=== PATIENT | male | born 1960 | race Hispanic/Latino ===

== ENCOUNTER 2018-04-01 18:27 | Observation (INO) | payer OTHER, SELFPAY ==
[2018-04-01 19:40] LABS: #Lymphocytes 1.2 thou/uL (1.20-3.40); #Monocytes 0.3 thou/uL (0.11-0.59); #Neutrophils 3.7 thou/uL (1.40-6.50); %Basophils 0.4 % (0.0-1.0); %Eosinophils 0.7 % (0.0-10.0); %Lymphocytes 22.5 % (21.0-51.0); %Monocytes 6.1 % (0.0-10.0); %Neutrophils 70.3 % (42.0-75.0); Hemoglobin 14.2 g/dL (14.0-18.0); Mean Corpuscular HGB CONC 33.7 g/dL (32.0-36.0); Mean Corpuscular Hemoglobin 31.4 pg (27.0-31.0); Mean Corpuscular Volume 93.1 fL (78.0-98.0); Mean Platelet Volume 7.3 fL (7.4-10.4); Platelet Count 207 thou/uL (130-400); RBC Distribution Width 11.5 % (11.5-14.5); Red Blood Cell (RBC) Count 4.51 mill/uL (4.70-6.10); White Blood Cell (WBC) Count 5.2 thou/uL (4.8-10.8)
[2018-04-01 20:03] LABS: ALT (SGPT) 20 U/L (8-55); AST (SGOT) 36 U/L (5-34); Albumin 4.5 g/dL (3.5-5.0); Alkaline Phosphatase 100 U/L (40-150); Anion Gap 14 mmol/L (10-20); BUN (Urea Nitrogen) 6 mg/dL (8.4-25.7); Bilirubin, Total 0.5 mg/dL (0.2-1.2); CK (CPK) 242 U/L (30-200); Calc. Creatinine Clearance 0 mL/min (70-130); Calcium 9.6 mg/dL (7.8-10.44); Carbon Dioxide 25 mmol/L (22-29); Chloride 104 mmol/L (98-107); Estimated GFR-MDRD Greater than 90; Glucose 91 mg/dL (70-105); Lipase 21 U/L (8-78); Protein, Total 8.5 g/dL (6.0-8.3); Sodium 139 mmol/L (136-145)
[2018-04-01] MEDS ORDERED: Nitroglycerin 0.4 MG TAB 1 EACH ONE ×2 (20:03→20:04)
--- NOTE | 2018-04-01 20:05 | RAD ---
RADIOGRAPH CHEST 1 VIEW: HISTORY: A 57-year-old male with chest pain. FINDINGS: There are no air space densities, pulmonary edema, pneumothorax, or cardiomegaly. The lateral costop hrenic angles are sharp. IMPRESSION: No acute cardiopulmonary findings. jn [] POS: ENEIDA
[2018-04-01] MEDS ORDERED: Acetaminophen 500 MG TAB ONE (21:20)
[2018-04-02 00:12] VITALS: BMI 19.8
[2018-04-02] MEDS ORDERED: Acetaminophen 325 MG TAB PO PRN ×2 (01:47→02:04)
[2018-04-02] MEDS ORDERED: Labetalol HCl 100 MG/20 ML VIAL SLOW IVP PRN (01:48)
[2018-04-02] MEDS: Nitroglycerin 2% Ointment 1 INCH/1 GM Packet TOP SCH ×4 (02:22→21:12)
[2018-04-02] MEDS ORDERED: Ondansetron ODT 4 MG TAB PO PRN (07:55)
[2018-04-02] MEDS ORDERED: Ondansetron PF 4 MG/2 ML Vial IVP PRN (07:55)
[2018-04-02] MEDS ORDERED: Lorazepam 2 MG/ML VIAL SLOW IVP PRN (08:00)
--- NOTE | 2018-04-02 08:58 | HP ---
HISTORY OF PRESENT ILLNESS: This is a 57-year-old man, who presents with complaints of feeling generally unwell yesterday morning. The patient states he began to feel lightheaded and started to panic after feeling his heart racing in his chest. Denies having any pain in his chest and began feeling nauseated. He attempted to vomit and began dry heaving only. At that point, he experienced pressure in his chest associated with dry heaving. He denies having any shortness of breath. He states he often feels unwell the day after drinking alcohol. The patient denies any heavy alcohol use and states he only drinks 2-3 beers every couple of days. Upon further questioning, the patient admitted to drinking at minimum, two 40-ounce bottles of beer, every other day. The last time he had any alcohol was on Friday, 2 days ago. He states whenever he drinks, he tends to not eat at all and feels he may have felt nauseous for that reason. The patient denies having any history of cardiac problems in the past, but is known to have history of hypertension. This is uncontrolled and he does not follow up with any physician. He ran out of his hypertensive medications after moving from [place] several months ago. He has not sought any medical attention since. The patient has felt well since being admitted to the hospital. He denies having any further episodes of palpitations or any pain. He denies having any history of alcohol withdrawal seizures. On occasion, he does experience tremors with alcohol withdrawal, but at the moment, he feels well and himself. In the ED, he was noted to be hypertensive with a blood pressure of 199/103. He has been started on lisinopril, and his blood pressure has normalized. He had an ECG done that showed sinus tachycardia with a complete right bundle-branch block. He had laboratory studies including a CK which was 242 and serial troponins which were all negative. He has had a chest x-ray done which shows no acute findings. The patient has been admitted for further workup and investigations. PAST MEDICAL HISTORY: 1. Hypertension. 2. Previous right knee surgery. 3. Right drop foot due to previous injury. 4. Alcohol abuse. FAMILY HISTORY: Noncontributory. SOCIAL HISTORY: The patient is fully independent and lives with his family. His primary language is Vietnamese. PHYSICAL EXAMINATION: GENERAL: The patient appears well-developed, but thin. He is in no acute distress. VITAL SIGNS: Temperature 97.8, pulse 73, respirations 16, O2 saturation 98% on room air, blood pressure 146/82. HEENT: Normocephalic and atraumatic. Eyes notable for bilateral cataracts. Extraocular movements normal. Oropharynx is clear. NECK: Supple without lymphadenopathy. CARDIAC: Regular rate and rhythm without audible murmurs, rubs, or gallops. LUNGS: Clear to auscultation bilaterally without any wheezes, rales, or rhonchi. No reproducible chest pain on exam. ABDOMEN: Soft, nontender, nondistended. Normoactive bowel sounds present. EXTREMITIES: The girth of the right foot is lower than the left, however, no swelling or edema in his left leg. The patient does have what appears to be muscle atrophy in the right calf with notable right drop foot. Sensation intact. The pulses are strong and equal bilaterally. LABORATORY DATA AND IMAGING: As mentioned above in the HPI. IMPRESSION AND PLAN: Mr. Peralta will be admitted to the observation unit for further investigation and workup of the following conditions. 1. Hypertension. Blood pressure has normalized since he has been started back on lisinopril. 2. Palpitations. ECG demonstrated sinus tachy with right bundle-branch block. His heart rate has normalized. Serial troponins are negative possibly associated with alcohol withdrawal. Lorazepam p.r.n. prescribed. We will discuss with Dr. Arellano indication for further cardiac investigations including stress test. I have added an additional troponin as well as BNP and D-dimer. 3. Alcohol withdrawal. The patient has been given fluids. Also, lorazepam p.r.n. prescribed to help with any tremors or should he develop any during his stay. 4. Venous thromboembolism prophylaxis. 5. Gastrointestinal prophylaxis. Job ID: [id number]
[2018-04-02] MEDS: Lisinopril 20 MG TAB PO SCH (09:09)
[2018-04-02] MEDS: Famotidine 20 MG TAB PO SCH ×2 (09:09→21:11)
[2018-04-02 09:39] LABS: #Eosinphils 0.1 thou/uL (0.0-0.7); #Lymphocytes 0.8 thou/uL (1.20-3.40); #Monocytes 0.3 thou/uL (0.11-0.59); #Neutrophils 2.5 thou/uL (1.40-6.50); %Basophils 0.5 % (0.0-1.0); %Eosinophils 3.6 % (0.0-10.0); %Lymphocytes 21.5 % (21.0-51.0); %Monocytes 8.2 % (0.0-10.0); %Neutrophils 66.2 % (42.0-75.0); Mean Corpuscular HGB CONC 33.5 g/dL (32.0-36.0); Mean Corpuscular Hemoglobin 31.4 pg (27.0-31.0); Mean Corpuscular Volume 93.7 fL (78.0-98.0); Mean Platelet Volume 7.6 fL (7.4-10.4); Platelet Count 195 thou/uL (130-400); RBC Distribution Width 11.5 % (11.5-14.5); Red Blood Cell (RBC) Count 4.13 mill/uL (4.70-6.10); White Blood Cell (WBC) Count 3.8 thou/uL (4.8-10.8)
[2018-04-02 09:58] LABS: Troponin I Less than 0.010 ng/mL (< 0.028)
[2018-04-02 09:59] LABS: ALT (SGPT) 16 U/L (8-55); AST (SGOT) 28 U/L (5-34); Albumin 3.7 g/dL (3.5-5.0); Alkaline Phosphatase 75 U/L (40-150); Anion Gap 11 mmol/L (10-20); BUN (Urea Nitrogen) 7 mg/dL (8.4-25.7); Calc. Creatinine Clearance 80 mL/min (70-130); Calcium 9.3 mg/dL (7.8-10.44); Carbon Dioxide 27 mmol/L (22-29); Chloride 107 mmol/L (98-107); Estimated GFR-MDRD Greater than 90; Globulin 3.5 g/dL (2.4-3.5); Glucose 96 mg/dL (70-105); Magnesium 1.9 mg/dL (1.6-2.6); Potassium 3.7 mmol/L (3.5-5.1); Protein, Total 7.2 g/dL (6.0-8.3); Sodium 141 mmol/L (136-145)
[2018-04-02] MEDS: Sodium Chloride 0.9% 1,000 ML IV SCH (15:52)
--- NOTE | 2018-04-02 17:59 | PDOC.EVN ---
Event Note - Event Note Event Note: Chart reviewed. Pt seen with Beverly Bar. Pt denies current chest pain. VSS S1, S2 Lungs CTA A/P: 1. chest pain: w/u in progress 2. Hypertensive urgency: Improved.
[2018-04-03] MEDS: Nitroglycerin 2% Ointment 1 INCH/1 GM Packet TOP SCH ×3 (03:14→13:59)
[2018-04-03] MEDS: Sodium Chloride 0.9% 1,000 ML IV SCH (06:28)
[2018-04-03 06:42] LABS: #Eosinphils 0.2 thou/uL (0.0-0.7); #Lymphocytes 1.2 thou/uL (1.20-3.40); #Monocytes 0.4 thou/uL (0.11-0.59); #Neutrophils 2.3 thou/uL (1.40-6.50); %Basophils 1.2 % (0.0-1.0); %Eosinophils 4.8 % (0.0-10.0); %Lymphocytes 29.4 % (21.0-51.0); %Monocytes 8.6 % (0.0-10.0); %Neutrophils 56.1 % (42.0-75.0); Hemoglobin 12.5 g/dL (14.0-18.0); Mean Corpuscular HGB CONC 32.1 g/dL (32.0-36.0); Mean Corpuscular Hemoglobin 30.8 pg (27.0-31.0); Mean Corpuscular Volume 95.9 fL (78.0-98.0); Mean Platelet Volume 8.1 fL (7.4-10.4); Platelet Count 187 thou/uL (130-400); RBC Distribution Width 11.7 % (11.5-14.5); Red Blood Cell (RBC) Count 4.07 mill/uL (4.70-6.10); White Blood Cell (WBC) Count 4.1 thou/uL (4.8-10.8)
[2018-04-03 06:59] LABS: ALT (SGPT) 17 U/L (8-55); AST (SGOT) 24 U/L (5-34); Albumin 3.7 g/dL (3.5-5.0); Alkaline Phosphatase 67 U/L (40-150); Anion Gap 10 mmol/L (10-20); BUN (Urea Nitrogen) 8 mg/dL (8.4-25.7); Calc. Creatinine Clearance 79 mL/min (70-130); Calcium 9.4 mg/dL (7.8-10.44); Carbon Dioxide 31 mmol/L (22-29); Chloride 104 mmol/L (98-107); Estimated GFR-MDRD Greater than 90; Globulin 3.3 g/dL (2.4-3.5); Glucose 83 mg/dL (70-105); Potassium 3.6 mmol/L (3.5-5.1); Sodium 141 mmol/L (136-145)
--- NOTE | 2018-04-03 08:13 | PDOC.PN ---
- Subjective Encounter Start Date: 04/03/18 Encounter Start Time: 08:11 Subjective: Patient resting comfortably. Feels well and without complaints. -: No further HAQUE. Denies any CP, palpitations or SOB since admission. -: No leg swelling/pain. Mobilising without difficulty. No SHAW. No n/v. No tremors/sweats or other symptoms of alcohol withdrawal. - Objective Resuscitation Status - Order Detail: 04/02/18 07:55 Resuscitation Status Routine Co-Sign Provider: Resuscitation Status: FULL: Full Resuscitation Vital Signs & Weight: Vital Signs (12 hours) Temp Pulse Resp BP BP Pulse Ox 04/03/18 07:24 98 F 67 15 119/67 98 04/03/18 04:19 98 F 70 14 121/67 98 04/02/18 21:10 98.1 F 72 16 129/71 98 Weight Weight 123 lb 4 oz I&O: 04/02/18 04/03/18 04/04/18 06:59 06:59 06:59 Intake Total 240 1697 Balance 240 1697 Result Diagrams: 04/03/18 04:37 04/03/18 04:37 Phys Exam - Physical Examination Constitutional: NAD HEENT: PERRLA, moist MMs, oral pharynx no lesions Neck: no nodes, supple, full ROM Respiratory: clear to auscultation bilateral Cardiovascular: RRR Gastrointestinal: soft, non-tender, no distention, positive bowel sounds Musculoskeletal: no edema, pulses present Neurological: normal sensation, moves all 4 limbs Psychiatric: normal affect, A&O x 3 Skin: no rash Dx/Plan (1) Chest pain Code(s): R07.9 - CHEST PAIN, UNSPECIFIED Status: Acute (2) Alcohol abuse Code(s): F10.10 - ALCOHOL ABUSE, UNCOMPLICATED Status: Acute (3) Hypertension Code(s): I10 - ESSENTIAL (PRIMARY) HYPERTENSION Status: Acute - Plan cont current plan of care, out of bed/ambulate, DVT proph w/lovenox, DVT proph w /SCDs D-Dimer negative. -: Awaiting stress test and Echo. -: For potential discharge if above investigations normal. -: Continue Lisinopril and monitor BP. Will need Rx at discharge. * . Review of Systems - Review of Systems Constitutional: negative: fever, chills, sweats, weakness, malaise Eyes: Other (Bilateral cataracts). negative: Pain, Vision Change ENT: negative: Ear Pain, Mouth Pain, Throat Pain, Throat Swelling Respiratory: negative: Cough, Dry, Shortness of Breath, Hemoptysis, SOB with Excertion Gastrointestinal: negative: Abdominal Pain, Diarrhea, Constipation, Melena, Hematochezia Genitourinary: negative: Dysuria, Frequency, Incontinence, Hematuria Musculoskeletal: negative: Neck Pain, Shoulder Pain, Arm Pain, Back Pain, Leg Pain Skin: negative: Rash, Lesions Neurological: negative: Weakness, Numbness, Change in Speech, Confusion - Medications/Allergies Allergies/Adverse Reactions: Allergies Allergy/AdvReac Type Severity Reaction Status Date / Time No Known Allergies Allergy Verified 04/02/18 01:31 Medications: Current Medications Acetaminophen (Tylenol) 650 mg PO Q4H PRN PRN Reason: Headache/Fever or Pain Last Admin: 04/02/18 15:53 Dose: 650 mg Famotidine (Pepcid) 20 mg PO BID [facility] Last Admin: 04/02/18 21:11 Dose: 20 mg Sodium Chloride (Normal Saline 0.9%) 1,000 mls @ 65 mls/hr IV .[id number] [facility] Last Admin: 04/03/18 06:28 Dose: 1,000 mls Labetalol HCl (Normodyne) 10 mg SLOW IVP Q4H PRN PRN Reason: SBP > 160 OR DBP > 100 Lisinopril (Zestril) 20 mg PO DAILY [facility] Last Admin: 04/02/18 09:09 Dose: 20 mg Lorazepam (Ativan) 2 mg SLOW IVP Q6H PRN PRN Reason: Anxiety/Agitation Nitroglycerin (Nitro-Bid 2% Ointment) 1 inch TOP 0200,0800,1400,2000 [facility] Last Admin: 04/03/18 07:27 Dose: Not Given Ondansetron HCl (Zofran Odt) 4 mg PO Q6H PRN PRN Reason: Nausea/Vomiting Ondansetron HCl (Zofran) 4 mg IVP Q6H PRN PRN Reason: Nausea/Vomiting Sodium Chloride (Flush - Normal Saline) 10 ml IVF Q12HR PRN PRN Reason: Saline Flush Sodium Chloride (Flush - Normal Saline) 10 ml IVF PRN PRN PRN Reason: Saline Flush
[2018-04-03] MEDS ORDERED: ADENOSINE 60 MG/20 ML VIAL ONE (09:23)
[2018-04-03] MEDS: Lisinopril 20 MG TAB PO SCH (10:36)
[2018-04-03] MEDS: Famotidine 20 MG TAB PO SCH (10:36)
--- NOTE | 2018-04-03 13:04 | NM ---
NUCLEAR MEDICINE CARDIAC MYOCARDIAL PERFUSION SPECT EJECTION FRACTION STUDY WALL MOTION CINE: 04/03/2018 HISTORY: A 57-year-old hypertensive male who presents with acute chest pain. TECHNIQUE: Number of days: 1. Rest study: Tc99m sestamibi (Cardiolite) dose: 10.0 mCi Pharmacologic stress: adenosine dose: 31.3 mg Stress study: Tc99m sestamibi (Cardiolite) dose: 30.0 mCi FINDINGS: CARDIAC (MYOCARDIAL PERFUSION) SPECT Distribution of sestamibi is homogeneous throughout the left ventricle, with no fixed or reversible m yocardial perfusion defects. EJECTION FRACTION STUDY EF = 54% WALL MOTION CINE The left ventricular wall motion is normal. There is normal systolic wall thickening. IMPRESSION: Normal. cassandra[] POS: ENEIDA
[2018-04-03 16:10] VITALS: BP 122/65; TEMP 98.7
--- NOTE | 2018-04-03 18:19 | DIS ---
DATE OF ADMISSION: 04/01/2018 DATE OF DISCHARGE: 04/03/2018 CONSULTING PHYSICIAN: None. DISCHARGE DIAGNOSES: 1. Hypertension, poorly controlled due to noncompliance. 2. Alcohol abuse. HOSPITAL COURSE: Mr. Peralta is a 57-year-old man with background history of hypertension who presented to the ED due to complaints of general malaise and palpitations. He began hyperventilating at home followed by chest discomfort, but denies having any pain per se. He had an episode of vomiting. The patient states he tends to feel unwell on days. He is not drinking alcohol. He drinks heavily 2 to 3 40-ounce bottles of beer at least 3 times a week. The patient states he ran out of his lisinopril after moving to [place] from [place] and has not followed up with any primary care physician since. He had a mild headache on admission and this improved once his blood pressure was controlled during his stay. He did undergo multiple investigations to rule out underlying cardiac cause including an echo which showed normal EF. Stress test, which was unremarkable. Also had a D-dimer done, which was negative. His blood pressure as mentioned above has been very well controlled, and on day of discharge, he is at baseline and medically cleared to go home. REVIEW OF SYSTEMS: He has had absolutely no complaints. Eating and drinking fine without any nausea or vomiting. Denies any abdominal pain. Has been moving his bowels normal. No urinary symptoms without any fevers, chills, or sweats. No chest pain, palpitations, or shortness of breath. No cough or hemoptysis. All other review of systems are negative. PHYSICAL EXAMINATION: GENERAL: The patient appears thin, well-built, in no acute distress. VITAL SIGNS: Temperature 98.7, pulse 70, respirations 16, O2 saturation 98% on room air, blood pressure 122/65. HEENT: Normocephalic and atraumatic. Pupils are equal, round, reactive to light. Sclerae are anicteric. Bilateral cataracts present. NECK: Supple without lymphadenopathy. Full range of motion. CARDIAC: Regular rate and rhythm. LUNGS: Clear to auscultation bilaterally. ABDOMEN: Soft, nontender, nondistended with bowel sounds present. EXTREMITIES: No clubbing, cyanosis, or edema. NEUROLOGIC: Alert and oriented x3. No focal deficits. LABORATORY DATA: Full blood count: White blood count 4.1, hemoglobin 12.5, and hematocrit 39, platelets 187. D-dimer less than 0.27. Electrolytes unremarkable. Renal function normal. GFR greater than 90. Serial troponins negative. BNP 43.8. Lipase 21. TSH 1.29. IMAGING DATA: 1. Chest x-ray on 04/01/2018, no acute cardiopulmonary findings. 2. On 04/02/2018, stress test nuclear medicine, EF 54%, normal examination. No myocardial perfusion defects present. 3. Echocardiogram on 04/01/2018, ejection fraction estimated at 55% to 60%, normal size left atrium. Left ventricular size normal. Mild mitral and tricuspid regurgitation. No thrombus in cardiac chambers. PROCEDURES: None. DISCHARGE MEDICATIONS: Prescription given for lisinopril 20 mg p.o. daily. CONDITION AT DISCHARGE: Stable. ACTIVITY: As tolerated. DIET: Heart healthy. FOLLOW-UP: The patient has been in contact with a physician who will follow up with him as an outpatient. He is aware of 4-dollar prescriptions available at [facility]. DISPOSITION: Patient discharged home. The patient's case was discussed with Dr. Haynes, who agrees upon care as described above. Job ID: [id number] MTDD
--- NOTE | 2018-04-04 10:50 | EKG ---
Test Reason : Blood Pressure : / mmHG Vent. Rate : 104 BPM Atrial Rate : 104 BPM P-R Int : 148 ms QRS Dur : 132 ms QT Int : 348 ms P-R-T Axes : 049 075 037 degrees QTc Int : 457 ms Sinus tachycardia Right bundle branch block Abnormal ECG Confirmed by NIKKY LUGO DO ([id number]), index editor AKBAR VERGARA ([id number] on 04/04/2018 10:50:17 AM Referred By: Confirmed By:NIKKY LUGO DO
== END 2018-04-03 17:53 | disposition home or self-care (01) ==
LOC: ERS 18:27 → 2SW 21:19
PROVIDERS: ADMIT Hospitalist; ATTEND Hospitalist
DX: I10 Essential (primary) hypertension (principal); F10.239 Alcohol dependence with withdrawal, unspecified; I45.10 Unspecified right bundle-branch block; M21.371 Foot drop, right foot; Z79.899 Other long term (current) drug therapy; Z98.890 Other specified postprocedural states
CPT/HCPCS: 36415; 71045; 78452; 80053; 82550; 83690; 83735; 83880; 84443; 84484; 85025; 85379; 93005; 93017; 93306; 96360; 96361; A9500; G0378; J0153

== ENCOUNTER 2018-07-05 16:22 | Emergency (ER) | payer SELFPAY ==
--- NOTE | 2018-07-05 17:14 | RAD ---
EXAM: Two views chest PROVIDED CLINICAL HISTORY: Heart palpitations. COMPARISON: 04/01/2018 FINDINGS: Cardiac silhouette and pulmonary vasculature are within normal limits. The lungs are clear. The oss eous structures have a normal appearance. There has been no interval change from prior exam. IMPRESSION: No acute cardiopulmonary process.
[2018-07-05 17:25] LABS: Bilirubin Negative (Negative); Blood, Urine Negative (Negative); Clarity CLEAR (Clear); Glucose, Urine (Dipstick) Negative (Negative); Leukocyte Negative (Negative); Nitrite Negative (Negative); Protein, Urine (Dipstick) Negative (Neg-Trace); Specific Gravity, Urine 1.003 (1.002-1.036); Urobilinogen 0.2 mg/dL (0.2-1.0)
[2018-07-05 18:11] LABS: #Lymphocytes 1.1 thou/uL (1.20-3.40); #Monocytes 0.4 thou/uL (0.11-0.59); #Neutrophils 3.7 thou/uL (1.40-6.50); %Basophils 0.1 % (0.0-1.0); %Eosinophils 0.3 % (0.0-10.0); %Lymphocytes 20.3 % (21.0-51.0); %Monocytes 8.3 % (0.0-10.0); Hemoglobin 13.1 g/dL (14.0-18.0); Mean Corpuscular HGB CONC 33.7 g/dL (32.0-36.0); Mean Corpuscular Hemoglobin 29.9 pg (27.0-31.0); Mean Corpuscular Volume 88.9 fL (78.0-98.0); Mean Platelet Volume 8.7 fL (7.4-10.4); Platelet Count 237 thou/uL (130-400); RBC Distribution Width 11.6 % (11.5-14.5); Red Blood Cell (RBC) Count 4.38 mill/uL (4.70-6.10); White Blood Cell (WBC) Count 5.2 thou/uL (4.8-10.8)
[2018-07-05 18:28] LABS: ALT (SGPT) 12 U/L (8-55); AST (SGOT) 23 U/L (5-34); Albumin 4.4 g/dL (3.5-5.0); Alkaline Phosphatase 95 U/L (40-150); Anion Gap 12 mmol/L (10-20); BUN (Urea Nitrogen) 12 mg/dL (8.4-25.7); Bilirubin, Total 0.5 mg/dL (0.2-1.2); Calc. Creatinine Clearance 0 mL/min (70-130); Calcium 9.7 mg/dL (7.8-10.44); Carbon Dioxide 28 mmol/L (22-29); Chloride 102 mmol/L (98-107); Estimated GFR-MDRD Greater than 90; Globulin 3.7 g/dL (2.4-3.5); Glucose 102 mg/dL (70-105); Potassium 3.9 mmol/L (3.5-5.1); Protein, Total 8.1 g/dL (6.0-8.3); Sodium 138 mmol/L (136-145)
== END 2018-07-05 19:09 | disposition home or self-care (01) ==
LOC: ERS 16:22
DX: R53.83 Other fatigue (principal); E78.5 Hyperlipidemia, unspecified; I10 Essential (primary) hypertension; Z79.899 Other long term (current) drug therapy
CPT/HCPCS: 36415; 71046; 80053; 81003; 83605; 84443; 84484; 85025; 87040; 87804; 93005; 94760